=== PATIENT | female | born 2000 | race Hispanic/Latino ===

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

== ENCOUNTER 2021-07-07 11:01 | Emergency (ER) | payer MEDICAID ==
[~2021-07-07] VITALS: Ht 157.5 cm; Wt 74.8 kg
[~2021-07-07 11:01] MED LIST: PREN-154 PO
[2021-07-07 11:02] VITALS: BP 140/113
[2021-07-07 11:39] LABS: BASOPHILS % (AUTO) 0.3 % (0.0-5.0); EOSINOPHILS % (AUTO) 0.1 % (0.0-8.0); HEMATOCRIT 41.7 % (36-48); MEAN CORPUSCULAR HEMOGLOBIN 27.4 pg (27.0-33.0); MEAN CORPUSCULAR HGB CONC 32.4 g/dL (32.0-36.0); MEAN CORPUSCULAR VOLUME 84.8 fL (80-100); MONOCYTES % (AUTO) 6.1 % (3.0-13.0); NEUTROPHILS % (AUTO) 88.1 % (40.0-77.0); PLATELET COUNT (AUTO) 472 K/uL (130-400); RED BLOOD CELL COUNT(AUTO) 4.92 MIL/uL (4.00-5.50); RED CELL DISTRIBUTION WIDTH 14.9 % (11.0-15.5); WHITE BLOOD COUNT (AUTO) 23.1 K/uL (4.8-10.8)
[2021-07-07 11:50] LABS: INR 1.06 (0.85-1.15); PROTHROMBIN TIME 11.5 SEC (9.6-11.6)
[2021-07-07 11:51] LABS: PARTIAL THROMBOPLASTIN TIME 29.1 SEC (26.3-35.5)
[2021-07-07 12:09] LABS: CREATININE 0.7 mg/dL (0.5-1.5)
[2021-07-07 12:11] LABS: ALBUMIN 4.4 g/dL (3.5-5.0); BILIRUBIN,TOTAL 0.5 mg/dL (0.2-1.0); TOTAL PROTEIN, SERUM 8.6 g/dL (6.0-8.3)
[2021-07-07] MEDS ORDERED: ACETAMINOPHEN 500 MG TABLET PO ONE (12:30)
[2021-07-07] MEDS ORDERED: KETOROLAC 30MG VIAL (30MG/ML) IV ONE (12:30)
[2021-07-07] MEDS ORDERED: CEFTRIAXONE 1G VIAL IVP ONE (12:30)
[2021-07-07] MEDS ORDERED: DEXAMETHASONE SOD PHOSPHATE 4 MG/ML 1ML VIAL IVP ONE (12:30)
[2021-07-07] MEDS ORDERED: 0.9%NACL 1000ML 1,000 ML IV ONE (12:30)
[2021-07-07] MEDS ORDERED: METH4TAB3 PO (13:29)
[2021-07-07] MEDS ORDERED: AMOX-429 PO (13:29)
[2021-07-07] MEDS ORDERED: ACET-66 PO (13:29)
== END 2021-07-07 13:57 | disposition home or self-care (01) ==
LOC: EDH 11:01
DX: J02.0 Streptococcal pharyngitis (principal); Z20.822 Contact with and (suspected) exposure to COVID-19; Z79.52 Long term (current) use of systemic steroids
CPT/HCPCS: 36415; 80053; 82550; 83605; 84484; 85025; 85610; 85730; 87040 ×2; 87635; 87880; 96361; 96374; 96375; 99284; C9803; J0696; J1100; J1885; J7030

== ENCOUNTER 2022-06-07 11:03 | Emergency (ER) | payer MEDICAID ==
[~2022-06-07] VITALS: Ht 154.9 cm; Wt 76.2 kg
[~2022-06-07 11:03] MED LIST changes: +ACET-66 PO; +AMOX-429 PO; +METH4TAB3 PO
[2022-06-07 11:25] VITALS: BP 91/64
[2022-06-07] MEDS ORDERED: AZITHROMYCIN 250 MG TABLET PO ONE (14:00)
[2022-06-07] MEDS ORDERED: ACETAMINOPHEN 500 MG TABLET PO ONE (14:00)
[2022-06-07] MEDS ORDERED: ONDANSETRON ODT 4MG TAB SL ONE (14:00)
[2022-06-07 14:03] LABS: HCG,QUALITATIVE URINE E (NEGATIVE)
[2022-06-07] MEDS ORDERED: OSEL75 PO (14:08)
[2022-06-07] MEDS ORDERED: AZIT500T2 PO (14:08)
[2022-06-07] MEDS ORDERED: IBUP-2070 PO (14:08)
[2022-06-07] MEDS ORDERED: ONDA4TAB10 PO (14:08)
[2022-06-07 14:12] LABS: APPEARANCE,URINE CLEAR (CLEAR); BILIRUBIN,URINE NEGATIVE (NEGATIVE); COLOR,URINE YELLOW (YELLOW); GLUCOSE, URINE (UA) NEGATIVE (NEGATIVE); KETONES,URINE NEGATIVE (NEGATIVE); LEUKOCYTE ESTERASE ,URINE NEGATIVE Leu/uL (NEGATIVE); NITRATE,URINE NEGATIVE (NEGATIVE); PROTEIN,URINE 30 mg/dL (NEGATIVE); UROBILINOGEN,URINE 0.2 mg/dL (0.2-1.0)
[2022-06-07 14:14] LABS: HCG,QUALITATIVE URINE NEGATIVE (NEGATIVE)
[2022-06-07 14:19] LABS: BACTERIA,URINE FEW /HPF (None Seen); MUCUS,URINE RARE LPF (None Seen); OTHER CASTS, URINE 1 /LPF (None Seen); SQUAMOUS EPITHELIAL CELL,UR FEW /HPF (0-2); TRANSITIONAL EPI CELLS,URINE RARE /HPF (None Seen)
== END 2022-06-07 15:00 | disposition home or self-care (01) ==
LOC: EDH 11:03
DX: J10.1 Influenza due to other identified influenza virus with other respiratory manifestations (principal); J02.0 Streptococcal pharyngitis; Z20.822 Contact with and (suspected) exposure to COVID-19; Z79.899 Other long term (current) drug therapy; Z98.890 Other specified postprocedural states
CPT/HCPCS: 99284; 87635; 87880; 87804 ×2; 81001; 81025; 93005; C9803